=== PATIENT | male | born 1990 | race Caucasian/White ===

== ENCOUNTER 2020-12-16 23:31 | Emergency (ER) | payer OTHER ==
[2020-12-17 00:15] LABS: BASOPHILS # (AUTO) 0.1 10^3/uL (0.0-0.1); BASOPHILS % (AUTO) 0.3 %; EOSINOPHILS % (AUTO) 0.2 %; HCT - HEMATOCRIT 47.3 % (42.0-52.0); HGB - HEMOGLOBIN 15.6 g/dL (14.0-18.0); LYMPHOCYTES # (AUTO) 1.4 10^3/uL (1.5-3.5); LYMPHOCYTES % (AUTO) 7.2 %; MEAN CORPUSCULAR HEMOGLOBIN 28.7 pg (27.0-31.0); MEAN CORPUSCULAR VOLUME 87.1 fL (80.0-94.0); MEAN PLATELET VOLUME 10.1 fL (7.4-11.4); MONOCYTES # (AUTO) 1.5 10^3/uL (0.0-1.0); MONOCYTES % (AUTO) 7.7 %; NEUTROPHILS % (AUTO) 84.2 %; PLT - PLATELET COUNT 232 10^3/uL (130-450); RED BLOOD COUNT 5.43 10^6/uL (4.70-6.10); RED CELL DISTRIBUTION WIDTH 12.7 % (12.0-15.0)
--- NOTE | 2020-12-17 00:17 | ED Physician Documentation ---
PD HPI ABD PAIN - Stated complaint Stated Complaint: N/V, ABD CRAMPS, DIAREHEA - Chief complaint Chief Complaint: Abd Pain - History obtained from History obtained from: Patient - History of Present Illness Timing - onset: How many days ago (1-2) Timing - duration: Days Timing - details: Gradual onset Pain level now: 4 Quality: Cramping Location: All over / everywhere (predominantly across upper abdomen) Radiation: Other (does not radiate) Improved by: Other (no ameliorating factors) Worsened by: Eating (PO) Associated symptoms: Nausea, Vomiting, Diarrhea. No: Fever, Hematemesis, Melena, Hematochezia Similar symptoms before: Has not had sx before Recently seen: Not recently seen Review of Systems Constitutional: reports: Reviewed and negative Cardiac: reports: Reviewed and negative Respiratory: reports: Reviewed and negative GI: reports: Abdominal Pain, Nausea, Vomiting, Diarrhea : denies: Dysuria, Frequency PD PAST MEDICAL HISTORY - Past Medical History Past Medical History: No - Past Surgical History Past Surgical History: No - Present Medications Home Medications: Ambulatory Orders Medication Instructions Recorded Confirmed Lidocaine Viscous 2% [Xylocaine 15 ml PO Q4H PRN #100 ml 12/17/20 Viscous 2%] Ondansetron Odt [Zofran] 4 mg TL Q6H PRN #10 tablet 12/17/20 Pantoprazole [Protonix] 40 mg PO DAILY #14 tablet 12/17/20 - Allergies Allergies/Adverse Reactions: Allergies Allergy/AdvReac Type Severity Reaction Status Date / Time No Known Drug Allergies Allergy Verified 12/16/20 23:35 - Social History Does the pt smoke?: No Smoking Status: Never smoker Does the pt drink ETOH?: Yes Does the pt have substance abuse?: No - Immunizations Immunizations are current?: Yes PD ED PE NORMAL - Vitals Vital signs reviewed: Yes - General General: Alert and oriented X 3, No acute distress, Well developed/nourished - HEENT HEENT: Other (tacky mucous membranes) - Neck Neck: Supple, no meningeal sign - Cardiac Cardiac: No murmur - Respiratory Respiratory: No respiratory distress, Clear bilaterally - Abdomen Abdomen: Normal bowel sounds, Soft, Non tender, Non distended - Back Back: No CVA TTP - Derm Derm: Normal color, Warm and dry PD ED PE EXPANDED - Cardiac Cardiac: Tachy, Regular Rhythm Results - Vitals Vitals: Vital Signs - 24 hr 12/16/20 12/16/20 12/17/20 23:35 23:37 01:37 Temperature 36.5 C 36.5 C 36.6 C Heart Rate 110 H 110 H 89 Respiratory 16 16 16 Rate Blood Pressure 138/86 H 138/86 H 132/80 H O2 Saturation 95 95 97 12/17/20 03:11 Temperature 36.5 C Heart Rate 81 Respiratory 16 Rate Blood Pressure 135/78 H O2 Saturation 98 Oxygen O2 Source Room air - Labs Labs: Laboratory Tests 12/16/20 12/16/20 23:50 23:50 WBC 19.0 H RBC 5.43 Hgb 15.6 Hct 47.3 MCV 87.1 MCH 28.7 MCHC 33.0 RDW 12.7 Plt Count 232 MPV 10.1 Neut # (Auto) 16.0 H Lymph # (Auto) 1.4 L Ford # (Auto) 1.5 H Eos # (Auto) 0.0 Baso # (Auto) 0.1 Absolute Nucleated RBC 0.00 Nucleated RBC % 0.0 Sodium 134 L Potassium 3.8 Chloride 98 L Carbon Dioxide 26 Anion Gap 10.0 BUN 16 Creatinine 0.9 Estimated GFR (MDRD) 100 Glucose 115 H Calcium 9.1 Total Bilirubin 1.1 H AST 19 ALT 35 Alkaline Phosphatase 74 Total Protein 7.6 Albumin 4.4 Globulin 3.2 Albumin/Globulin Ratio 1.4 Lipase 22 - Rads (name of study) CT A/P with IV contrast Radiology: Prelim report reviewed, See rad report PD MEDICAL DECISION MAKING - ED course Complexity details: reviewed results, re-evaluated patient, considered differential, d/w patient ED course: c/o n/v/d with abdominal pain that is predominantly across upper abdomen. There is no significant tenderness on exam, but he has concerning degree of leukocytosis and thus CT A/P performed. The results are s/o gatroenteritis; normal appendix is visualized. He is given protonix, PO maalox with viscous lidocaine, and zofran and discharged with rx for same (except maalox, OTC) Departure - Departure Disposition: 01 Home, Self Care Clinical Impression: Gastritis Condition: Good Instructions: ED Gastritis Prescriptions: Pantoprazole [Protonix] 40 mg PO DAILY #14 tablet Lidocaine Viscous 2% [Xylocaine Viscous 2%] 15 ml PO Q4H PRN #100 ml PRN Reason: Abdominal Pain Ondansetron Odt [Zofran] 4 mg TL Q6H PRN #10 tablet PRN Reason: Nausea / Vomiting Forms: Activity restrictions Discharge Date/Time: 12/17/20 03:11
[2020-12-17 00:27] LABS: ALBUMIN 4.4 g/dL (3.2-5.5); ALBUMIN/GLOBULIN RATIO 1.4 (1.0-2.2); BILIRUBIN,TOTAL 1.1 mg/dL (0.2-1.0); CALCIUM 9.1 mg/dL (8.5-10.3); CREATININE 0.9 mg/dL (0.6-1.2); POTASSIUM 3.8 mmol/L (3.5-5.0); TOTAL PROTEIN 7.6 g/dL (6.7-8.2)
[2020-12-17] MEDS ORDERED: SODIUM CHLORIDE 0.9% 1,000 ML IV STA (00:37)
[2020-12-17] MEDS ORDERED: KETOROLAC 30 MG/ML VIAL IVP STA (00:37)
[2020-12-17] MEDS ORDERED: ONDANSETRON 4 MG/2 ML VIAL IVP STA ×2 (00:37→02:43)
[2020-12-17] MEDS ORDERED: IOVERSOL 320 100 ML VIAL IVP ONE ×2 (00:53→01:29)
[2020-12-17] MEDS ORDERED: LIDOCAINE VISCOUS 2% 15 ML UDC MM STA (02:44)
[2020-12-17] MEDS ORDERED: MAG HYDROX/AL HYDROX/SIMETH 30 ML UDC PO STA (02:44)
[2020-12-17] MEDS ORDERED: PANTOPRAZOLE 40 MG TABLET PO STA (02:45)
[2020-12-17 03:13] VITALS: BP 135/78
--- NOTE | 2020-12-17 07:45 | CT Report ---
PROCEDURE: Abdomen/Pelvis W INDICATIONS: abdominal pain, tenderness CONTRAST: IV CONTRAST: Optiray 320 ml: 100 PO CONTRAST: *NO PO CONTRAST TECHNIQUE: After the administration of weight appropriate dose of intravenous contrast, 5 mm thick sections acqu ired from the diaphragms to the symphysis. 5 mm thick coronal and sagittal reformats were acquired. For radiation dose reduction, the following was used: automated exposure control, adjustment of mA and/or kV according to patient size. COMPARISON: None. FINDINGS: Image quality: Excellent. ABDOMEN: Lung bases: Lung bases are clear. Heart size is normal. Solid organs: Liver and spleen are normal in size and enhancement. Gallbladder is unremarkable. No pericholecystic inflammatory changes. No gallstones visualized. Biliary system is non dilated. Panc reas enhances normally. No peripancreatic inflammation. No adrenal nodules. Kidneys demonstrate nor mal size and enhancement, without hydronephrosis. Visualized ureters are normal bilaterally in cours e and caliber. Peritoneum and bowel: The stomach demonstrates circumferential wall thickening. No significant periga stric inflammatory changes. No evidence for perforation. Bowel loops demonstrate normal wall thicknes s and caliber. No free fluid or air. There are also multiple fluid-filled loops of small bowel. Nodes and vessels: No retroperitoneal or mesenteric adenopathy by size criteria. Aorta and inferior vena cava are normal in size. Miscellaneous: No ventral hernias. PELVIS: Genitourinary: Bladder wall thickness is normal. Miscellaneous: No inguinal hernias or adenopathy. Bones: No suspicious bony lesions. No acute vertebral body compression fractures. IMPRESSION: 1. Circumferential gastric wall thickening likely related to gastritis. 2. Multiple loops of fluid-filled small bowel which may be related to enteritis either infectious or inflammatory. 3. Nonobstructive bowel gas pattern. No significant discrepancy with initial interpretation by overnight radiologist. Reviewed by: Jung Billingsley MD on 12/17/2020 7:44 AM PDT Approved by: Jung Billingsley MD on 12/17/2020 7:44 AM PDT Station ID: [id number]
== END 2020-12-17 03:11 | disposition home or self-care (01) ==
LOC: ED 23:31
DX: K29.70 Gastritis, unspecified, without bleeding (principal)
CPT/HCPCS: 36415; 74177; 80053; 83690; 85025; 96374; 96375; 96376; 99284; A9270; Q9967